=== PATIENT | female | born 1970 | race Caucasian/White ===

== ENCOUNTER 2016-08-12 20:16 | Emergency (ER) | payer OTHER ==
[~2016-08-12] VITALS: Ht 157.5 cm; Wt 67.3 kg
[2016-08-12 20:16] VITALS: BP 150/88
[~2016-08-12 20:16] MED LIST: CIPR500T94 PO; CYCL10TA2 PO; HYDR-2666 PO; HYDR1TAB10 PO; METR500T PO; PROM25TA10 PO; TRAM50TA PO; TRAZ150T55 PO
--- NOTE | 2016-08-12 20:18 | ED.ADGEN ---
Past History Past Medical History: No Pertinent History Past Surgical History: Appendectomy Smoking: Non-smoker Alcohol Use: None Drug Use: None Adult General Chief Complaint Chief Complaint " I cut my finger on pocket knife.. .I need a tetanus shot...".." I was cutting out feet for my purse.. and the blade folded up on me..." HPI HPI Patient is a 46 year old female who presents with above hx and complaints of laceration 1 cm, superficial to Lt index finger. Pt. has good hemostasis. Pt. distal neurovascular intact. Pt. advised it has been more than 10 yrs since last tetanus. Pt. is right hand dominate. Patient normally healthy. No ill contacts. No recent travel. Review of Systems Review of Systems Constitutional: Denies fever or chills [] Eyes: Denies change in visual acuity, redness, or eye pain [] HENT: Denies nasal congestion or sore throat [] Respiratory: Denies cough or shortness of breath [] Cardiovascular: No additional information not addressed in HPI [] GI: Denies abdominal pain, nausea, vomiting, bloody stools or diarrhea [] : Denies dysuria or hematuria [] Musculoskeletal: Denies back pain or joint pain . Complaints of laceration left index finger Integument: Denies rash or skin lesions [] Neurologic: Denies headache, focal weakness or sensory changes [] Endocrine: Denies polyuria or polydipsia [] Family History Family History Noncontributory Current Medications Current Medications Current Medications Medications (Trade) Dose Ordered Sig/[facility] Start Time Stop Time Status Last Admin Dose Admin Diphtheria/ Tetanus/[facility] Pertussis (Boostrix) 0.5 ml ONCE ONCE 08/12/16 20:45 08/12/16 20:46 DC 08/12/16 20:43 0.5 ML See nursing for home meds Allergies Allergies Allergies Coded Allergies Type Severity Reaction Last Updated Verified prochlorperazine Allergy Severe body goesinto spasm 05/03/14 No Physical Exam Physical Exam Constitutional: Well developed, well nourished, no acute distress, non-toxic appearance. [] HENT: Normocephalic, atraumatic, bilateral external ears normal, oropharynx moist, no oral exudates, nose normal. [] Eyes: PERRLA, EOMI, conjunctiva normal, no discharge. [] Neck: Normal range of motion, no tenderness, supple, no stridor. [] Cardiovascular:Heart rate regular rhythm, no murmur [] Lungs & Thorax: Bilateral breath sounds clear to auscultation [] Abdomen: Bowel sounds normal, soft, no tenderness, no masses, no pulsatile masses. [] Scar Skin: Warm, dry, no erythema, no rash. [] Has l cm Laceration left index finger Back: No tenderness, no CVA tenderness. [] Extremities: No tenderness, no cyanosis, no clubbing, ROM intact, no edema. [] Neurologic: Alert and oriented X 3, normal motor function, normal sensory function, no focal deficits noted. [] Psychologic: Affect normal, judgement normal, mood normal. [] Current Patient Data Vital Signs Vital Signs Date Time Temp Pulse Resp B/P Pulse Ox O2 Delivery O2 Flow Rate FiO2 08/12/16 20:16 98.8 88 16 97 Room Air EKG EKG [] Radiology/Procedures Radiology/Procedures [] Course & Med Decision Making Course & Med Decision Making Pertinent Labs and Imaging studies reviewed. (See chart for details). Keep wound clean and dry. Polysporin 4 times a day. Follow-up primary care. Return if any concerns. [] Final Impression Final Impression 1. Lt. Index finger Laceration[] Problems: Dragon Disclaimer Dragon Disclaimer This electronic medical record was generated, in whole or in part, using a voice recognition dictation system. JAME LARKIN MD Aug 12, 2016 20:18
[2016-08-12] MEDS ORDERED: DIPHTH,PERTUSS(ACELL),TET TOX 0.5 ML DISP.SYRIN. VAX IM ONE (20:45)
== END 2016-08-12 20:49 | disposition home or self-care (01) ==
LOC: ER 20:23
DX: S61.211A Laceration without foreign body of left index finger without damage to nail, initial encounter (principal); Z88.8 Allergy status to other drugs, medicaments and biological substances; W26.0XXA Contact with knife, initial encounter; Y93.89 Activity, other specified; Y99.8 Other external cause status; Y92.89 Other specified places as the place of occurrence of the external cause
CPT/HCPCS: 90471; 90715; 99283-25

== ENCOUNTER → 2016-09-25 | Outpatient (CLI) | payer OTHER ==
[~2016-09-25] MED LIST changes: +CYCL-331 PO; -CYCL10TA2 PO; -HYDR-2666 PO; +HYDR-2758 PO; +TRAZ150T49 PO; -TRAZ150T55 PO
--- NOTE | 2016-09-25 11:18 | RAD ---
Chest, 2 views, 09/25/2016: History: Shortness of breath Comparison is made to a study from 12/29/2015. The heart size and pulmonary vascularity are normal. No pulmonary infiltrates are seen. There is no evidence of pleural fluid. Mild spurring is present in the spine. A surgical plate and screws is evident in the lower cervical region. IMPRESSION: No acute cardiopulmonary abnormality is detected.
== END | disposition home or self-care (01) ==
LOC: DXRADRC 11:06
PROVIDERS: ATTEND Nurse Practitioner Family
DX: R06.02 Shortness of breath (principal)
CPT/HCPCS: 71020

== ENCOUNTER 2019-07-24 22:38 | Emergency (ER) | payer SELFPAY ==
[~2019-07-24] VITALS: Ht 157.5 cm; Wt 67.3 kg
[~2019-07-24 22:38] MED LIST changes: +HYDR-2155 PO; -HYDR-2758 PO
[2019-07-24] MEDS ORDERED: PRED50TA PO (23:11)
[2019-07-24] MEDS ORDERED: CYCL-331 PO (23:11)
--- NOTE | 2019-07-24 23:11 | PHYS DOC ---
Past History Past Medical History: GERD, Hypertension Past Surgical History: Appendectomy, Hysterectomy Smoking: Non-smoker Alcohol Use: None Drug Use: None Adult General Chief Complaint Chief Complaint: BACK INJURY HPI HPI 49-year-old female presents with left-sided low back pain. The patient was carrying about an 80 pound potted plant a few days ago. She developed pain across the top of the sacrum bilaterally after carrying it down some steps. She had a few pills left of the Medrol Dosepak and took those. The right side has improved, but the left side still hurts. It is most painful with bending over, going up and down stairs, and standing up from a sitting position. Standing up, her pain is 2 out of 10, getting up from a chair it is 8 out of 10. She has been taking ibuprofen without much relief. She denies any other injuries or complaints. Review of Systems Review of Systems Constitutional: Denies fever or chills [] Eyes: Denies change in visual acuity, redness, or eye pain [] HENT: Denies nasal congestion or sore throat [] Respiratory: Denies cough or shortness of breath [] Cardiovascular: No additional information not addressed in HPI [] GI: Denies abdominal pain, nausea, vomiting, bloody stools or diarrhea [] : Denies dysuria or hematuria [] Musculoskeletal: Left-sided low back pain[] Integument: Denies rash or skin lesions [] Neurologic: Denies headache, focal weakness or sensory changes [] Endocrine: Denies polyuria or polydipsia [] All other systems were reviewed and found to be within normal limits, except as documented in this note. Current Medications Current Medications Current Medications Medications (Trade) Dose Ordered Sig/[facility] Start Time Stop Time Status Last Admin Dose Admin Acetaminophen/ Hydrocodone Bitart (Lortab 5/325) 1 tab 1X ONCE 07/24/19 23:30 07/24/19 23:31 Prednisone (Prednisone) 50 mg 1X ONCE 07/24/19 23:30 07/24/19 23:31 Allergies Allergies Allergies Coded Allergies Type Severity Reaction Last Updated Verified prochlorperazine Allergy Severe body goesinto spasm 05/03/14 No Physical Exam Physical Exam Constitutional: Well developed, well nourished, no acute distress, non-toxic appearance. [] HENT: Normocephalic, atraumatic, bilateral external ears normal, oropharynx moist, no oral exudates, nose normal. [] Eyes: PERRLA, EOMI, conjunctiva normal, no discharge. [] Neck: Normal range of motion, no tenderness, supple, no stridor. [] Cardiovascular:Heart rate regular rhythm, no murmur [] Lungs & Thorax: Bilateral breath sounds clear to auscultation [] Abdomen: Bowel sounds normal, soft, no tenderness, no masses, no pulsatile masses. [] Skin: Warm, dry, no erythema, no rash. [] Back: Tenderness over the left sacroiliac joint[] Extremities: No tenderness, no cyanosis, no clubbing, ROM intact, no edema. [] Neurologic: Alert and oriented X 3, normal motor function, normal sensory function, no focal deficits noted. [] Psychologic: Affect normal, judgement normal, mood normal. [] Current Patient Data Vital Signs Vital Signs Date Time Temp Pulse Resp B/P (MAP) Pulse Ox O2 Delivery O2 Flow Rate FiO2 07/24/19 22:40 97.7 79 18 191/95 (127) 98 Room Air EKG EKG [] Radiology/Procedures Radiology/Procedures [] Course & Med Decision Making Course & Med Decision Making Pertinent Labs and Imaging studies reviewed. (See chart for details) The patient appears to have left sacroiliac joint dysfunction and pain. I will treat her with Flexeril and prednisone. I will give the first doses in the emergency room. The patient is stable for discharge at this time. [] Dragon Disclaimer Dragon Disclaimer This electronic medical record was generated, in whole or in part, using a voice recognition dictation system. Departure Departure: Impression: Primary Impression: Sacroiliac joint dysfunction of left side Disposition: HOME, SELF-CARE Condition: STABLE Referrals: PCP,NO (PCP) Patient Instructions: Sacroiliac Joint Dysfunction Scripts Prednisone (PREDNISONE) 50 Mg Tablet 1 TAB PO DAILY for low back pain for 3 Days, #3 TAB Prov: FRANCISCO KING DO 07/24/19 Cyclobenzaprine Hcl (CYCLOBENZAPRINE HCL) 10 Mg Tablet 1 TAB PO TID PRN for MUSCLE SPASMS, #30 TAB Prov: FRANCISCO KING DO 07/24/19 FRANCISCO KING DO Jul 24, 2019 23:11
[2019-07-24] MEDS ORDERED: CYCLOBENZAPRINE 10 MG TABLET. PO ONE (23:30)
[2019-07-24] MEDS ORDERED: HYDROcodone/APAP 5/325MG 1 TAB TABLET PO ONE (23:30)
[2019-07-24] MEDS ORDERED: predniSONE 10 MG TABLET PO ONE (23:30)
[2019-07-24 23:40] VITALS: BP 146/102
== END 2019-07-24 23:40 | disposition home or self-care (01) ==
LOC: ER 22:38
DX: M53.3 Sacrococcygeal disorders, not elsewhere classified (principal); M54.5 Low back pain; K21.9 Gastro-esophageal reflux disease without esophagitis; I10 Essential (primary) hypertension; Z90.89 Acquired absence of other organs; Z90.710 Acquired absence of both cervix and uterus; Z88.8 Allergy status to other drugs, medicaments and biological substances
CPT/HCPCS: 99284; J7512